=== PATIENT | male | born 1940 | race Caucasian/White ===

== ENCOUNTER 2024-03-01 14:18 | Outpatient (RCR) | payer MEDICARE, SELFPAY ==
[2024-02-09 11:10] VITALS: BP 140/84
[2024-02-09] MEDS: VENOFER 110 MG IV (11:38)
[2024-02-12 09:50] VITALS: BP 127/68
[2024-02-12] MEDS: VENOFER 110 MG IV (10:03)
[2024-02-12 11:15] VITALS: BP 110/63
[2024-02-16 10:20] VITALS: BP 124/68
[2024-02-16] MEDS: VENOFER 110 MG IV (10:28)
[2024-02-16 11:45] VITALS: BP 119/65
[2024-02-26 10:01] VITALS: BP 135/74
[2024-02-26] MEDS: VENOFER 110 MG IV (10:21)
[2024-02-26 12:07] VITALS: BP 134/75
[2024-03-01 14:32] VITALS: BP 104/66
[2024-03-01] MEDS: VENOFER 110 MG IV (14:42)
== END 2024-03-02 09:14 | disposition home or self-care (01) ==
LOC: OID 14:18
PROVIDERS: ATTENDING PHYSICIAN Nurse Practitioner Family; FAMILY PHYSICIAN Nurse Practitioner Family
DX: E61.1 Iron deficiency (principal); K90.0 Celiac disease
CPT/HCPCS: 96365; J1756